=== PATIENT | male | born 1995 | race Caucasian/White ===

== ENCOUNTER → 2022-03-11 | Outpatient (CLI) | payer BC | LOC: M RAD 16:30 | PROVIDERS: ATTEND Physician Assistant | DX: S42.145A Nondisplaced fracture of glenoid cavity of scapula, left shoulder, initial encounter for closed fracture (principal); W18.30XA Fall on same level, unspecified, initial encounter; Y92.009 Unspecified place in unspecified non-institutional (private) residence as the place of occurrence of the external cause ==

== ENCOUNTER → 2025-04-13 | Outpatient (REF) | payer OTHER ==
[2025-04-13 09:06] LABS: SEMEN APPEARANCE OPAQUE (OPAQUE); SEMEN VISCOSITY LIQUID (LIQUID); SEMEN VOLUME 2.9 ml (2.0-5.0)
[2025-04-13 09:07] LABS: SPERM CONCENTRATION 84.2 M/ml (>=15.0); TOTAL PROGRESSIVE SPERM 87.3 M/Ejac.; WBC CONCENTRATION <=1 M/ml (<=1 M/ml)
== END ==
LOC: M LAB REF 08:23
PROVIDERS: ATTEND Obstetrics & Gynecology
DX: N46.9 Male infertility, unspecified (principal)